=== PATIENT | female | born 1940 | race Caucasian/White ===

== ENCOUNTER 2017-05-18 12:30 | Inpatient (IN) | payer OTHER, MEDICARE ==
--- NOTE | 2017-05-24 13:23 | GHP ---
[f rep st] PREOP HISTORY AND PHYSICAL DATE OF ADMISSION: 05/25/2017 CHIEF COMPLAINT: Right ankle pain and right cavovarus foot deformity. HISTORY OF PRESENT ILLNESS: The patient is a 77 year old who had previously undergone a total right ankle arthroplasty. The patient developed cavovarus malalignment postoperatively, with pain in her ankle. Her symptoms have been worsening, limiting her ambulatory status. MEDICATIONS: Atorvastatin 10 mg p.o. daily, Bystolic 5 mg. PAST MEDICAL HISTORY: Positive for hypertension and increased cholesterol. PAST SURGICAL HISTORY: Positive for the total ankle arthroplasty. SOCIAL HISTORY: Positive for being a former smoker. FAMILY HISTORY: Noncontributory. ALLERGIES: She lists no known drug allergies. PHYSICAL EXAMINATION: GENERAL APPEARANCE: She is alert and oriented x3 and overall appearing in good health, in no acute distress. HEENT: Head is normocephalic. Pupils equal, round and reactive to light, extraocular movements intact. NECK: Supple. No JVD or lymphadenopathy. CHEST: Clear to auscultation; no rales or rhonchi. HEART: Regular rate and rhythm, no murmurs or gallops. ABDOMEN: Soft, nontender, nondistended. No organomegaly. GENITALIA: Exam was deferred. RECTAL: Exam was deferred. BREASTS: Exam was deferred. EXTREMITIES: Exam reveals cavovarus alignment of her right foot and ankle. She has tenderness about the anterior aspect of her ankle. ASSESSMENT: 1. Painful total ankle arthroplasty. 2. Right cavovarus deformity. PLAN: The patient is scheduled to undergo a revision total ankle arthroplasty for correction of a cavovarus deformity. /[id number]/MODL MTDD
[2017-05-25] MEDS ORDERED: LR 1,000 ML IV ONE (11:26)
[2017-05-25] MEDS ORDERED: LIDOCAINE 1% 2 ML INJ ID PRN (11:26)
[2017-05-25] MEDS ORDERED: BUPIVACAINE 0.5% 30 ML SDV ONE (11:26)
[2017-05-25] MEDS ORDERED: LIDOCAINE 1% 2 ML INJ ONE (11:31)
--- NOTE | 2017-05-25 11:47 | PDANEPAE ---
ANE History of Present Illness R total ankle arthroplasty revision, gastrocnemius recession ANE Past Medical History - Cardiovascular History Hx Hypertension: Yes Hx Arrhythmias: No Hx Chest Pain: No Hx Coronary Artery / Peripheral Vascular Disease: No Hx CHF / Valvular Disease: No Hx Palpitations: No Cardiovascular History Comment: pcp monitors bp meds - Pulmonary History Hx COPD: No Hx Asthma/Reactive Airway Disease: No Hx Recent Upper Respiratory Infection: No Hx Oxygen in Use at Home: No Hx Sleep Apnea: No Sleep Apnea Screening Result - Last Documented: Negative - Neurologic History Hx Cerebrovascular Accident: No Hx Seizures: No Hx Dementia: No - Endocrine History Hx Diabetes: No - Renal History Hx Renal Disorders: No - Liver History Hx Hepatic Disorders: No - Neurological & Psychiatric Hx Hx Neurological and Psychiatric Disorders: No - Cancer History Hx Cancer: No - Congenital Disorder History Hx Congenital Disorders: No - GI History Hx Gastrointestinal Disorders: No - Chronic Pain History Chronic Pain: No - Surgical History Prior Surgeries: right ankle revision. right knee replacement. previous ankle and knee surgeries prior to replacements ANE Review of Systems Review of systems is: negative - Exercise capacity Exercise capacity: >=4 METS METS (RN): 4 METS ANE Patient History - Allergies Allergies/Adverse Reactions: No Known Allergies Allergy (Verified 04/26/17 14:31) - Home Medications Home Medications: Aspirin [Aspirin 81mg (*)] 81 mg PO HS 04/22/17 [Last Taken 05/16/17] Atorvastatin Calcium [Lipitor 10 mg (*)] 10 mg PO HS 04/22/17 [Last Taken ] Cholecalciferol Vit D3 [Vitamin D3 (*)] 1,000 units PO DAILY 04/22/17 [Last Taken 05/16/17] Herbals/Supplements -Info Only 1 ea PO DAILY 04/22/17 [Last Taken 05/16/17] Multivitamins [Multivitamin (*)] 1 each PO DAILY 04/22/17 [Last Taken 05/16/17] Nebivolol HCl [Bystolic 5 mg (*)] 5 mg PO DAILY 04/22/17 [Last Taken 05/25/17 0700] [place]-3 Fatty Acids [Fish Oil 1000 mg (*)] 2,000 mg PO DAILY 04/22/17 [Last Taken 05/16/17] - NPO status NPO Status: no food or drink >8 hours NPO Since - Liquids (Date): 05/24/17 NPO Since - Liquids (Time): 22:00 NPO Since - Solids (Date): 05/24/17 NPO Since - Solids (Time): 19:00 - Anes Hx Anes Hx: post operative nausea, post operative nausea and vomiting - Smoking Hx Smoking Status: Former smoker - Family Anes Hx Family Anes Hx: none Family Hx Anesthesia Complications: none ANE Labs/Vital Signs - Vital Signs Blood Pressure: 148/68 Heart Rate: 61 Respiratory Rate: 24 O2 Sat (%): 94 Height: 162.56 cm Weight: 72.575 kg ANE Physical Exam - Airway Neck exam: FROM Mallampati Score: Class 3 Mouth exam: normal dental/mouth exam - Pulmonary Pulmonary: no respiratory distress - Cardiovascular Cardiovascular: regular rate and rhythym - ASA Status ASA Status: II ANE Anesthesia Plan Anesthesia Plan: GA w LMA Regional Anesthesia: popliteal SNB (block for post op pain), POPC/PSR
[2017-05-25] MEDS ORDERED: ROPIVACAINE HCL 150 MG/30 ML INJ ONE ×2 (12:03→16:22)
[2017-05-25] MEDS ORDERED: LIDOCAINE 2% 5 ML SDV ONE (12:03)
[2017-05-25] MEDS ORDERED: fentaNYL 100 MCG/2 ML INJ ONE ×2 (12:04→12:56)
[2017-05-25] MEDS ORDERED: MIDAZOLAM 2 MG/2 ML VIAL ONE (12:04)
[2017-05-25] MEDS ORDERED: ceFAZolin 2 GM/DEXTROSE 100 ML IV ONE (12:28)
--- NOTE | 2017-05-25 12:30 | PDHPUP ---
History & Physical Update H&P update statement: This history and physical update is based on an assessment of the patient which was completed after admission or registration (within 24 hours), but prior to the surgery/procedure. No changes since H&P May 24 2017 H&P update: no change in patient's condition since H&P completed
[2017-05-25] MEDS ORDERED: LIDOCAINE 2% 100 MG/5 ML SYR ONE (12:56)
[2017-05-25] MEDS ORDERED: DEXAMETHASONE 4 MG/ML VIAL ONE (12:56)
[2017-05-25] MEDS ORDERED: ONDANSETRON 4 MG/2 ML VIAL ONE ×2 (12:56→22:09)
[2017-05-25] MEDS ORDERED: PROPOFOL 200 MG/20 ML VIAL ONE (12:57)
[2017-05-25] MEDS ORDERED: epHEDrine SULFATE 10 MG/ML SYR ONE ×2 (13:20→15:31)
[2017-05-25] MEDS ORDERED: HYDROmorphONE/DILAUDID 2 MG/ML INJ ONE (14:48)
[2017-05-25] MEDS ORDERED: PHENYLEPHRINE HCL 100 MCG/ML SYR ONE (15:51)
[2017-05-25] MEDS ORDERED: NALOXONE HCL 0.4 MG/ML INJ ONE (16:19)
[2017-05-25] MEDS ORDERED: PROMETHAZINE HCL 25 MG/ML INJ IVP PRN ×2 (16:35→22:18)
[2017-05-25] MEDS ORDERED: fentaNYL 100 MCG/2 ML INJ IVP PRN (16:35)
[2017-05-25] MEDS ORDERED: HYDROCODONE/APAP 5/325 TAB PO PRN (16:35)
[2017-05-25] MEDS ORDERED: DEXAMETHASONE 4 MG/ML VIAL IVP PRN (16:35)
[2017-05-25] MEDS ORDERED: ACETAMINOPHEN 500 MG TAB PO PRN (16:35)
[2017-05-25] MEDS ORDERED: MEPERIDINE 25 MG/ML SYR IVP PRN (16:35)
[2017-05-25] MEDS ORDERED: HYDROmorphONE/DILAUDID 1 MG/ML SYR IVP PRN (16:35)
[2017-05-25] MEDS ORDERED: NALOXONE HCL 0.4 MG/ML INJ IVP PRN (16:35)
[2017-05-25] MEDS ORDERED: OXYCODONE/APAP 5/325 TAB PO PRN (16:35)
[2017-05-25] MEDS ORDERED: ONDANSETRON 4 MG/2 ML VIAL IVP PRN ×2 (16:35→22:17)
--- NOTE | 2017-05-25 16:37 | POSTANESTH ---
Post Anesthetic Evaluation Cardiovascular Status: Normal, Stable, Similar to Pre-Op Cond Respiratory Status: Normal, Stable, Similar to Pre-op Cond. Level of Consciousness/Mental Status: Can Participate in Eval, Moderately Sleepy Pain Control: Adequate, Prn Tx Ordered Nausea/Vomiting Control: Adequate, Prn Tx Ordered Complications Possibly Related to Anesthesia: None Noted
[2017-05-25] MEDS ORDERED: oxyCODONE IR 5 MG TAB PO PRN (16:41)
[2017-05-25] MEDS ORDERED: HYDROmorphONE/DILAUDID 2 MG/ML INJ IVP PRN (16:41)
[2017-05-25] MEDS ORDERED: diphenhydrAMINE 25 MG CAP PO PRN (16:59)
[2017-05-25] MEDS ORDERED: ROPIVACAINE 0.2% 1,100 MG in PUMP SET 1 EA NB SCH (18:00)
--- NOTE | 2017-05-25 19:33 | POSTOPPROG ---
Post Op Note Date of Operation: 05/25/17 Surgeon: Jesse Heaton Russian Language Professor: Daja NICHOLSON Anesthesia: GET(General Endotracheal) Pre-op Diagnosis: Painful TAA, Cavovarus foot, gastroc contracture Post-op Diagnosis: Same Procedure: Revision TAA, gastroc recession, Post tib tendon release PL to PB transfer, Inf/Abcess present in the surg proc area at time of surgery?: No EBL: 100-500
[2017-05-25] MEDS ORDERED: ONDANSETRON DISINTEGRATING 4 MG TAB PO PRN (22:16)
[2017-05-25] MEDS ORDERED: LR 1,000 ML IV SCH (22:30)
--- NOTE | 2017-05-26 06:12 | SOAPPROG ---
SOAP Progress Note Assessment/Plan: Assessment: S/P Revision TAA... Pain well controlled Brown diet +U/O Splint with sang D/C on heel Toes with good cap refill Able to flex/ext Plan: OOB/PT Poss D/C home later this afternoon 05/26/17 06:10 Objective: Vital Signs Temp Pulse Resp BP Pulse Ox 36.5 C 84 18 133/65 H 93 05/26/17 04:28 05/26/17 04:28 05/26/17 04:28 05/26/17 04:28 05/26/17 04:28 Microbiology 05/25/17 13:48 Gram Stain - Final Ankle - Tissue 05/25/17 05/26/17 05/27/17 05:59 05:59 05:59 Intake Total 3000 Output Total 575 Balance 2425 ICD10 Worksheet Patient Problems: Problems Problem Status Onset Acquired cavovarus deformity of right foot Acute - ICD10 Problem Qualifiers (1) Acquired cavovarus deformity of right foot
--- NOTE | 2017-05-26 07:50 | GOP ---
[f rep st] OPERATIVE REPORT DATE OF OPERATION: 05/25/2017 SURGEON: Jesse Heaton MD BUSINESS SUPPORT SPECIALIST: LAURA Ziegler, who was integral to completion of the surgery PREOPERATIVE DIAGNOSIS: 1. Right painful total ankle arthroplasty. 2. Right cavovarus foot, malalignment. 3. Right gastrocnemius contracture. POSTOPERATIVE DIAGNOSIS: 1. Right painful total ankle arthroplasty. 2. Right cavovarus foot, malalignment. 3. Right gastrocnemius contracture. PROCEDURE PERFORMED: 1. Revision right total ankle arthroplasty. 2. Removal of total ankle arthroplasty implant. 3. Right calcaneal osteotomy. 4. Right posterior tibial tendon release. 5. Right deltoid ligament release. 6. Right peroneus brevis tenorrhaphy. 7. Right peroneus longus to peroneus brevis transfer. 8. Right gastrocnemius recession. 9. Use of fluoroscopy. FINDINGS: ESTIMATED BLOOD LOSS: 125 mL. INDICATIONS: Patient is a 77-year-old who had previously undergone total ankle arthroplasty. The p atient had continued pain with progressive cavovarus deformity. She is having significant difficult y ambulating secondary to her symptoms. Based on her persistence of symptoms refractory to nonopera tive treatment, she was interested in pursuing operative treatment. From an operative standpoint, r evision of her ankle arthroplasty and correction of her cavovarus deformity was recommended. The pa tiejuan j acknowledged she understood the potential risks of the operation, including but not limited to , bleeding, infection, neurovascular damage, limb loss, limited limb function, persistence of pain, functional limitations or deformity despite operative treatment, implant failure requiring removal, possible below-knee amputation, and anesthetic risks. She acknowledged she understood the potential risks, planned procedure, and postoperative plan well, and had all questions answered prior to surg sandy. She gave her consent to the operative procedure. DESCRIPTION OF PROCEDURE: The patient was brought to the operating room after IV antibiotics were a dministered. She had an indwelling popliteal block performed by the anesthesiologist at my request for postoperative pain management in preop holding. IV antibiotics were administered. General anes thetic was administered by the anesthesiologist. A tourniquet was placed on the right thigh, bump u nderneath the right hip and shoulder, and the right lower extremity was prepped and draped in standa rd sterile fashion. After marking the incisions and Michael wrap exsanguination, the tourniquet was inf lated to 250. Attention was initially directed toward the gastroc recession. A longitudinal incisi on was made over the posterior medial aspect of the lower leg at the level of musculotendinous junct ion of the gastroc. Skin and subcutaneous tissue were sharply incised. Sharp dissection was ace d through the superficial posterior compartment of the fascia in line with the skin incision. The g astroc tendon was bluntly dissected, retracted with a speculum, and transected distal to its musculo tendinous junction. Superficial posterior compartment fascia and subcutaneous tissue were closed wi th 3-0 Vicryl suture in interrupted fashion. The skin was closed with 4-0 nylon interrupted sutures . An anterior approach to the ankle was utilized for exposure. The previous anterior incision was uti lized. Skin and subcutaneous tissue were sharply incised. Dissection was carried between the tibia lis anterior and extensor hallucis longus tendon taking care to avoid damage to the neurovascular bu ndle. The ankle capsule was longitudinally incised and reflected medially and laterally. The scar tissue was removed with a rongeur. Our attention was directed toward removal of the talar implant a nd polyethylene. The polyethylene was removed utilizing the osteotome without difficulty. A chisel was placed underneath the talar tray. The tray was elevated without any undue damage to the talus. Following removal, there was still significant varus malalignment with tightness of the posterior tibial tendon. The previous medial incision was then utilized. Skin and subcutaneous tissue were s harply incised. Sharp dissection was carried down to the sheath of the posterior tibial tendon. Po sterior tibial tendon was then transected in a Z-type fashion in case later reattachment was desired . This did improve the varus, although there was still noted to be contracture of the deltoid ligam ent. Deltoid ligament, utilizing the scalpel and rongeur, was freed from its medial malleolar inser tion. This allowed the talus to come into a neutral position. Upon examination of the tibial impla nt, there was noted to be an excessive amount of external rotation. This was felt to be a contribut ing factor to the varus malalignment. Utilizing the chisel, the tibial tray was removed. The porti on of the medial and lateral bone anterior medially and posterior laterally was removed to allow for rotation of a new implant. A size 2 tibial base plate was then chosen. A stab incision was made i n the heel to allow for impaction across the subtalar joint. After drilling from the heel across th e calcaneus and talus with a 6.0 mm drill bit, the impactor was placed, and the new tibial tray was impacted into the stem which was very stable. This was impacted into place and had neutral rotation . The talus was then smoothed with a saw back to a flat level. Cancellous bone graft (allograft ch ips, as well as cancellous bone graft harvested from removal intraoperatively) was impacted into saul ce into the stem to fill the osseous void. Based on the relatively shallow talus, the Pluromed revision talar implant was utilized. A size 2 talus was placed and found to have excellent fit. After confirming the position fluoroscopically, the head holes were drilled. A definitive size 2 ta lar implant was impacted into place. After trialing various polyethylene sizes, a size 10 mm polyet hylene was inserted which allowed for dorsiflexion past neutral, but favorable stability at the ankl e joint. Fluoroscopic views confirmed favorable positioning of the total ankle. Attention was directed towards closure. The tourniquet was deflated. The anterior fascia was close d with 2-0 Vicryl suture in interrupted fashion. Subcutaneous tissue was closed with 3-0 Vicryl sut ure in interrupted fashion. Skin closed with 3-0 nylon interrupted vertical mattress sutures. Desp ite favorable positioning of the ankle, there was still residual cavovarus malalignment. The previo us lateral incision was made posterior to the lateral malleolus curving in the lateral hindfoot. Sk in and subcutaneous tissue were sharply incised. The sheath of the peroneal tendon was incised. Th e distal aspect of the peroneus longus was noted to have significant degenerative changes and scarri ng. The peroneus brevis was in satisfactory condition. The peroneus brevis was then incised in a Z -type fashion. With the ankle everted, the peroneus brevis was sewn back onto itself in a tightened position. The peroneus brevis was performed with #1 PDS suture. The peroneus longus was then edwards sected and secured under tension into the peroneus brevis at multiple points with #1 PDS suture. Through the same incision, a calcaneal osteotomy was performed. After protecting the dorsal and saul ntar aspect of the calcaneal tuberosity with Hohmann retractors, a saw was utilized to create an ost eotomy in the tuberosity in a lateral to medial direction. A small lateral wedge was removed. The tuberosity segment was gapped open with an osteotome and bone product support representative. The proximal segment was tr anslated laterally and tilted into appropriate valgus. Fixation was accomplished with three 4.0 mm cortical screws placed in lag fashion through stab incisions in the heel. Fluoroscopic views confir med favorable osteotomy and hardware positions. Attention was then directed toward closure. The pe roneal retinaculum was closed with 0 Vicryl suture in an interrupted fashion. The subcutaneous tiss ue was closed with 3-0 Vicryl suture in an interrupted fashion. Skin was closed with 4-0 nylon inte rrupted sutures. The wounds were dressed with sterile Adaptic, 4 x 4, and Webril, and the leg was p laced in a below-knee splint. The patient tolerated the procedure well and was taken to the recover y room, extubated, in stable condition postoperatively. All sponge, needle, and instrument counts w ere reported as being correct. COMPLICATIONS: None. PLAN: The patient will be admitted for pain management and gait training. She will be weightbearin g on her operative extremity. /[id number]/MODL
[2017-05-26] MEDS ORDERED: ENOXAPARIN 40 MG/0.4 ML SYR SC SCH (09:00)
[2017-05-26 12:05] VITALS: BP 122/57; PULSE 74; RESP 20; TEMP 98.2; O2SAT 93
== END 2017-05-26 15:58 | disposition home or self-care (01) | DRG 470 ==
LOC: F3N 05-25 10:47
PROVIDERS: ADMIT Orthopaedic Surgery Foot and Ankle Surgery; ATTEND Orthopaedic Surgery Foot and Ankle Surgery
PROC: 0LSS0ZZ Reposition Right Ankle Tendon, Open Approach (ICD-10-PCS; principal; 2017-05-25 12:30)
PROC: 0M8 Bursae and Ligaments, Division (ICD-10-PCS; principal; 2017-05-25 12:30)
PROC: 0QSL04Z Reposition Right Tarsal with Internal Fixation Device, Open Approach (ICD-10-PCS; principal; 2017-05-25 12:30)
PROC: 0LQS0ZZ Repair Right Ankle Tendon, Open Approach (ICD-10-PCS; principal; 2017-05-25 12:30)
PROC: 0SPF0JZ Removal of Synthetic Substitute from Right Ankle Joint, Open Approach (ICD-10-PCS; principal; 2017-05-25 12:30)
PROC: 0L8S0ZZ Division of Right Ankle Tendon, Open Approach (ICD-10-PCS; principal; 2017-05-25 12:30)
PROC: 0SRF0JZ Replacement of Right Ankle Joint with Synthetic Substitute, Open Approach (ICD-10-PCS; principal; 2017-05-25 12:30)
DX: Q66.1 Congenital talipes calcaneovarus (principal); T84.84XA Pain due to internal orthopedic prosthetic devices, implants and grafts, initial encounter; M62.461 Contracture of muscle, right lower leg; I10 Essential (primary) hypertension; E78.00 Pure hypercholesterolemia, unspecified
CPT/HCPCS: 97116-GP; 97161-GP; 97165-GO; C1713; C1762; G8978-GP-CJ; G8979-GP-CI; G8987-GO-CI; G8988-GO-CI; G8989-GO-CI; J0690; J1100; J1170; J1650; J2001; J2250; J2310; J2370; J2405; J2704; J2795; J3010